=== PATIENT | female | born 1975 | race Caucasian/White ===

== ENCOUNTER 2019-06-04 08:55 | Outpatient (CLI) | payer BC ==
--- NOTE | 2019-06-04 11:23 | RAD ---
6 VIEWS CERVICAL SPINE: Date: 06/04/19 HISTORY: Neck pain. FINDINGS: Alignment appears normal on the frontal view. Bilateral oblique imaging provided. There is mild osteophyte encroachment on the right C5-6 neural fo ramen. Open-mouth odontoid view demonstrates a normal appearing dens and C1-2 articulation. Fuchs view is un remarkable. Neutral lateral radiograph demonstrates straightening of the normal cervical lordosis. There is minim al retrolisthesis at C5-6 and minimal anterolisthesis at C7-T1. No significant prevertebral soft tiss ue abnormality. IMPRESSION: Mild degenerative changes. If symptoms persist, CT advised given history of trauma and pain. POS: [facility]
== END 2019-06-04 08:56 | disposition home or self-care (01) ==
LOC: MADRAD 08:55
PROVIDERS: ATTEND Physician Assistant
DX: M54.2 Cervicalgia (principal); M47.812 Spondylosis without myelopathy or radiculopathy, cervical region
CPT/HCPCS: 72052

== ENCOUNTER 2020-09-01 19:02 | Emergency (ER) | payer BC ==
[2020-09-01] MEDS ORDERED: Sodium Chloride 0.9% 1,000 ML ONE ×2 (19:32→20:47)
[2020-09-01 19:34] LABS: Pregnancy Test - Urine (BHCG) Negative (Negative)
[2020-09-01 19:35] LABS: Bilirubin Negative (Negative); Blood, Urine Large (Negative); Clarity Cloudy (Clear); Glucose, Urine (Dipstick) Negative (Negative); Ketone, Urine Negative (Negative); Leukocyte Moderate (Negative); Nitrite Negative (Negative); Protein, Urine (Dipstick) Trace mg/dL (Neg-Trace); Specific Gravity 1.025 (1.002-1.036); Urobilinogen 0.2 mg/dL (Less than 2)
[2020-09-01 19:37] LABS: Pregu Control Background? CLEAR/WHITE (CLR/WHITE); Pregu Control Bar Appear? YES (CONTROL BAR)
[2020-09-01 19:38] LABS: Specific Gravity, Urine 1.025 (1.002-1.036)
[2020-09-01 19:40] LABS: WBC/HPF Greater than 50 HPF (0-3)
[2020-09-01 19:41] LABS: Bacteria/HPF 3+ HPF (None Seen); Mucous/LPF 1+ LPF (<2+)
[2020-09-01] MEDS ORDERED: cefTRIAXone\\ROCEPHIN 2 GM VIAL ONE (19:47)
[2020-09-01] MEDS ORDERED: Sodium Chloride 0.9% 100 ML ONE (19:47)
[2020-09-01 19:50] LABS: #Basophils 0.1 thou/uL (0.0-0.2); #Eosinphils 0.3 thou/uL (0.0-0.7); #Lymphocytes 2.8 thou/uL (1.20-3.40); #Monocytes 0.8 thou/uL (0.11-0.59); #Neutrophils 7.2 thou/uL (1.40-6.50); %Basophils 1.2 % (0.0-1.0); %Eosinophils 2.7 % (0.0-10.0); %Lymphocytes 24.7 % (21.0-51.0); %Monocytes 7.2 % (0.0-10.0); %Neutrophils 64.2 % (42.0-75.0); Hemoglobin 12.9 g/dL (12.0-16.0); Mean Corpuscular HGB CONC 32.3 g/dL (32.0-36.0); Mean Corpuscular Hemoglobin 30.5 pg (27.0-31.0); Mean Corpuscular Volume 94.4 fL (78.0-98.0); Mean Platelet Volume 6.9 fL (7.4-10.4); Platelet Count 298 thou/uL (130-400); RBC Distribution Width 12.1 % (11.5-14.5); Red Blood Cell (RBC) Count 4.23 mill/uL (4.20-5.40); White Blood Cell (WBC) Count 11.2 thou/uL (4.8-10.8)
[2020-09-01] MEDS ORDERED: Fentanyl 100 MCG/2 ML VIAL ONE (20:00)
[2020-09-01 20:03] LABS: ALT (SGPT) 11 U/L (8-55); AST (SGOT) 15 U/L (5-34); Albumin 4.3 g/dL (3.5-5.0); Alkaline Phosphatase 49 U/L (40-110); Anion Gap 13 mmol/L (10-20); BUN (Urea Nitrogen) 22 mg/dL (7.0-18.7); Bilirubin, Total 0.3 mg/dL (0.2-1.2); Calc. Creatinine Clearance 0 mL/min (70-130); Calcium 9.6 mg/dL (7.8-10.44); Carbon Dioxide 29 mmol/L (22-29); Chloride 101 mmol/L (98-107); Estimated GFR-MDRD 64; Globulin 3.1 g/dL (2.4-3.5); Glucose 91 mg/dL (70-105); Lipase 4 U/L (8-78); Protein, Total 7.4 g/dL (6.0-8.3); Sodium 139 mmol/L (136-145)
--- NOTE | 2020-09-01 21:59 | CT ---
CT ABDOMEN NONCONTRAST CT PELVIS NONCONTRAST: (urolithiasis protocol) DATE: 09/01/20 at 8:29 p.m. HISTORY: 45-year-old female with abdominal pain. COMPARISON: 03/30/18 TECHNIQUE: IV injection of iodinated contrast media: none Oral contrast media: none FINDINGS: Other than for urolithiasis, the lack of IV and oral contrast limits the evaluation. The previously demonstrated right ureteral stent is no longer present. In fact, the right kidney has been surgically removed during the interim. There are surgical clips in the right upper retroperitone um. There are no calculi in the left kidney, left ureter, or urinary bladder. There are bilateral tubal ligation clips. No signs of colonic diverticulitis, small bowel dilation, ascites, or pneumoperitoneum. Within the limitations of a noncontrast scan, no abnormality identified involving liver, abdominal ao rta, left kidney, adrenals, pancreas, or spleen. Normal appendix. Lung base are clear of consolidatio ns and pleural effusions. There is diffuse edema throughout the mesentery of a mild degree. Duplicate d left renal collecting system. Compensatory hypertrophy of the left kidney. IMPRESSION: 1. Status post right nephrectomy. 2. Diffuse mild mesenteric edema. 3. No urolithiasis or obstructive uropathy. KATTY Kaba POS: [facility]
== END 2020-09-01 22:00 | disposition home or self-care (01) ==
LOC: MADERS 19:02
DX: N39.0 Urinary tract infection, site not specified (principal); I10 Essential (primary) hypertension; Z79.899 Other long term (current) drug therapy
CPT/HCPCS: 74176; 80053; 81003; 81015; 81025; 83690; 85025; 87077; 87086; 87186; 96374; 96375; J0696; J3010; J3490; J7050

== ENCOUNTER 2020-10-09 11:23 | Emergency (ER) | payer BC ==
[2020-10-10 01:32] LABS: SARS-CoV-2 MS2 Positive; SARS-CoV-2 N Gene Negative; SARS-CoV-2 S Gene Negative; SARS-CoV-2 by NAA Not Detected (NotDetected); SARS-CoV-2 orf1ab Negative
== END 2020-10-09 13:35 | disposition home or self-care (01) ==
LOC: MADERS 11:23
DX: B34.9 Viral infection, unspecified (principal); Z20.828 Contact with and (suspected) exposure to other viral communicable diseases; I10 Essential (primary) hypertension; E05.00 Thyrotoxicosis with diffuse goiter without thyrotoxic crisis or storm; Z79.01 Long term (current) use of anticoagulants; Z87.442 Personal history of urinary calculi; Z79.899 Other long term (current) drug therapy
CPT/HCPCS: 87635; 99283; U0003

== ENCOUNTER 2021-04-02 07:23 | Emergency (ER) | payer BC ==
[2021-04-02 08:18] LABS: #Basophils 0.1 thou/uL (0.0-0.2); #Eosinphils 0.2 thou/uL (0.0-0.7); #Monocytes 0.8 thou/uL (0.11-0.59); #Neutrophils 6.3 thou/uL (1.40-6.50); %Basophils 1.6 % (0.0-1.0); %Eosinophils 2.4 % (0.0-10.0); %Lymphocytes 20.9 % (21.0-51.0); %Monocytes 8.6 % (0.0-10.0); %Neutrophils 66.5 % (42.0-75.0); Hemoglobin 12.4 g/dL (12.0-16.0); Mean Corpuscular HGB CONC 30.5 g/dL (32.0-36.0); Mean Corpuscular Volume 98.2 fL (78.0-98.0); Mean Platelet Volume 7.1 fL (7.4-10.4); Platelet Count 288 thou/uL (130-400); RBC Distribution Width 13.3 % (11.5-14.5); Red Blood Cell (RBC) Count 4.15 mill/uL (4.20-5.40); White Blood Cell (WBC) Count 9.5 thou/uL (4.8-10.8)
[2021-04-02 08:32] LABS: ALT (SGPT) 71 U/L (8-55); AST (SGOT) 32 U/L (5-34); Alkaline Phosphatase 48 U/L (40-110); Anion Gap 14 mmol/L (10-20); BUN (Urea Nitrogen) 26 mg/dL (7.0-18.7); Bilirubin, Total 0.2 mg/dL (0.2-1.2); Calc. Creatinine Clearance 0 mL/min (70-130); Calcium 9.1 mg/dL (7.8-10.44); Carbon Dioxide 22 mmol/L (22-29); Chloride 106 mmol/L (98-107); Glucose 114 mg/dL (70-105); Magnesium 1.7 mg/dL (1.6-2.6); Potassium 4.9 mmol/L (3.5-5.1); Sodium 137 mmol/L (136-145)
[2021-04-02 08:48] LABS: Thyroid Stimulating Hormone 6.1696 uIU/mL (0.35-4.94)
[2021-04-02 17:35] LABS: T4 6.6 ug/dL (4.87-11.72)
== END 2021-04-02 09:37 | disposition home or self-care (01) ==
LOC: MADERS 07:23
DX: I47.9 Paroxysmal tachycardia, unspecified (principal); E03.2 Hypothyroidism due to medicaments and other exogenous substances; T38.2X5A Adverse effect of antithyroid drugs, initial encounter; F41.1 Generalized anxiety disorder; E05.00 Thyrotoxicosis with diffuse goiter without thyrotoxic crisis or storm; I10 Essential (primary) hypertension; Z87.442 Personal history of urinary calculi; Z79.899 Other long term (current) drug therapy; Z79.01 Long term (current) use of anticoagulants
CPT/HCPCS: 80053; 83735; 84436; 84443; 85025; 93005

== ENCOUNTER 2021-07-30 03:42 | Emergency (ER) | payer BC, OTHER ==
[2021-07-30 06:58] LABS: #Basophils 0.1 thou/uL (0.0-0.2); #Eosinphils 0.4 thou/uL (0.0-0.7); #Lymphocytes 2.5 thou/uL (1.20-3.40); #Monocytes 0.8 thou/uL (0.11-0.59); %Basophils 1.2 % (0.0-1.0); %Eosinophils 3.1 % (0.0-10.0); %Lymphocytes 21.3 % (21.0-51.0); %Neutrophils 67.4 % (42.0-75.0); Hemoglobin 13.2 g/dL (12.0-16.0); Mean Corpuscular HGB CONC 31.2 g/dL (32.0-36.0); Mean Corpuscular Hemoglobin 29.6 pg (27.0-31.0); Mean Corpuscular Volume 94.8 fL (78.0-98.0); Mean Platelet Volume 6.3 fL (7.4-10.4); Platelet Count 333 thou/uL (130-400); RBC Distribution Width 12.2 % (11.5-14.5); Red Blood Cell (RBC) Count 4.48 mill/uL (4.20-5.40); White Blood Cell (WBC) Count 11.9 thou/uL (4.8-10.8)
[2021-07-30] MEDS ORDERED: Metoclopramide HCl 10 MG/2 ML VIAL ONE (06:59)
[2021-07-30] MEDS ORDERED: Lactated Ringer's 1,000 ML ONE (06:59)
[2021-07-30] MEDS ORDERED: diphenhydrAMINE 12.5 MG/5 ML UDCUP ONE (06:59)
[2021-07-30] MEDS ORDERED: diphenhydrAMINE 50 MG/ML VIAL ONE (07:00)
[2021-07-30 07:12] LABS: BHCG - Serum Negative (NEGATIVE); Pregs Control Background? CLEAR/WHITE (CLR/WHITE); Pregs Control Bar Appear? YES (CONTROL BAR)
[2021-07-30 07:14] LABS: ALT (SGPT) 26 U/L (8-55); AST (SGOT) 25 U/L (5-34); Albumin 3.9 g/dL (3.5-5.0); Alkaline Phosphatase 52 U/L (40-110); Anion Gap 12 mmol/L (10-20); BUN (Urea Nitrogen) 24 mg/dL (7.0-18.7); Bilirubin, Total Less than 0.2 mg/dL (0.2-1.2); CK (CPK) 50 U/L (29-168); Calc. Creatinine Clearance 0 mL/min (70-130); Calcium 9.8 mg/dL (7.8-10.44); Carbon Dioxide 25 mmol/L (22-29); Chloride 106 mmol/L (98-107); Globulin 3.2 g/dL (2.4-3.5); Glucose 100 mg/dL (70-105); Lipase 13 U/L (8-78); Magnesium 1.9 mg/dL (1.6-2.6); Potassium 4.7 mmol/L (3.5-5.1); Protein, Total 7.1 g/dL (6.0-8.3); Sodium 138 mmol/L (136-145)
== END 2021-07-30 07:30 | disposition left against medical advice (07) ==
LOC: MADERS 03:42
DX: G89.18 Other acute postprocedural pain (principal); K08.89 Other specified disorders of teeth and supporting structures; R51.9 Headache, unspecified; R11.2 Nausea with vomiting, unspecified; R19.7 Diarrhea, unspecified; I10 Essential (primary) hypertension; E05.00 Thyrotoxicosis with diffuse goiter without thyrotoxic crisis or storm; Z87.442 Personal history of urinary calculi
CPT/HCPCS: 80053; 82550; 83690; 83735; 84703; 85025; 96374; 96375; J1200; J2765; J7120; Q0163

== ENCOUNTER 2023-03-26 08:37 | Outpatient (CLI) | payer BC, OTHER | END 2023-03-26 08:38 | disposition home or self-care (01) | LOC: MADRAD 08:37 | PROVIDERS: ATTEND Nurse Practitioner Family | DX: M54.12 Radiculopathy, cervical region (principal); M54.50 Low back pain, unspecified | CPT/HCPCS: 72040; 72100 ==